=== PATIENT | male | born 1980 | race Caucasian/White ===

== ENCOUNTER 2017-04-10 15:13 | Emergency (ER) | payer OTHER ==
[2017-04-10 15:33] VITALS: BP 128/77
--- NOTE | 2017-04-10 16:38 | UC ---
Katarina Timmons Gabriel, scribed for Lina Colón MD on 04/10/17 at 1625 . Back Pain HPI - HPI Summary HPI Summary: This patient is a 37 year old M presenting to [facility] with 2 complaints. 1) pt reports right back pain that began last night while he was twisting to get daughter into car seat. . The patient rates the pain 6/10 in severity, located below his right shoulder blade, and radiating into right side. States intermittent spasms. states has had similar muscle spasms before. No cp, sob. No n/v. No fevers, chills. Pt has taken acetaminophen and motrin with mild relief. No direct trauma. Pt denies HERNANDEZ, numbness, weakness, tingling, fever, and chills. 2) Pt also reports tooth pain for 10 days and in planning to see a dentist in the Spring. Pt states has many broken teeth and has difficulty with infections in the past. Pt reports temperature sensitivity and pain with chewing. Pt states motrin/apap with mild relief. No facial edema. no fevers, chills no intraoral edema Pt's medications reviewed this visit - History of Current Complaint Chief Complaint: UCBackPain Stated Complaint: BACK & TOOTH PAIN Time Seen by Provider: 04/10/17 16:15 Hx Obtained From: Patient Onset/Duration: Still Present Timing: Constant Severity Initially: Moderate Severity Currently: Moderate Pain Intensity: 6 Pain Scale Used: 0-10 Numeric Character: Spasmodic, Stiffness Aggravating Factor(s): Movement Alleviating Factor(s): Cold, OTC Meds Associated Signs And Symptoms: Negative: Swelling, Redness, Fever, Weakness, Numbness, Tingling - Allergies/Home Medications Allergies/Adverse Reactions: Allergies Allergy/AdvReac Type Severity Reaction Status Date / Time Amoxicillin Allergy Anaphylatic Verified 04/10/17 15:24 Shock Clindamycin Allergy Anaphylatic Verified 04/10/17 15:24 Shock Penicillins [PCN] Allergy Anaphylatic Verified 04/10/17 15:24 Shock Home Medications: Home Medications Acetaminophen [Acetaminophen Extra Stren] 1,500 mg PO Q6HR PRN 04/10/17 [ History Confirmed 04/10/17] Ibuprofen [Advil] 600 mg PO Q6HR 04/10/17 [History Confirmed 04/10/17] Sertraline HCl [Zoloft] 50 mg PO DAILY 04/10/17 [History Confirmed 04/10/17] PMH/Surg Hx/FS Hx/Imm Hx Previously Healthy: Yes Psychological History: Anxiety, Depression Other History Of: Negative For: HIV, Hepatitis B, Hepatitis C - Surgical History Surgical History: Yes Surgery Procedure, Year, and Place: Appendectomy 2006 - Family History Known Family History: Negative: Respiratory Disease, Seizure Disorder - Social History Occupation: Employed Full-time Lives: With Family Alcohol Use: Rare Substance Use Type: None Smoking Status (MU): Heavy Every Day Tobacco Smoker Amount Used/How Often: 1 PPD Review of Systems Constitutional: Negative ENT: Dental Pain Musculoskeletal: Other: - back pain into the chest Neurological: Negative - numbness/ tingling All Other Systems Reviewed And Are Negative: Yes Physical Exam Triage Information Reviewed: Yes Appearance: Well-Appearing, No Pain Distress, Well-Nourished Vital Signs: Initial Vital Signs Temp 98.8 F 04/10/17 15:27 Pulse 81 04/10/17 15:27 Resp 18 04/10/17 15:27 BP 128/77 04/10/17 15:27 Pulse Ox 97 04/10/17 15:27 Vital Signs Reviewed: Yes Eye Exam: Normal Eyes: Positive: Conjunctiva Clear ENT Exam: Normal ENT: Positive: Normal ENT inspection, Hearing grossly normal, Pharynx normal, TMs normal, Dental tenderness. Negative: Nasal congestion Dental: Positive: Gross Decay/Caries @, Dental Fracture @, Other: - Pt with multiple broken teeth and caries Pt with ttp #18 - broken at gumline + TTP no fluctuance, no edema, no bleeding Neck exam: Normal Neck: Positive: Supple, Nontender, No Lymphadenopathy Respiratory Exam: Normal Respiratory: Positive: Chest non-tender, Lungs clear, Normal breath sounds, No respiratory distress, No accessory muscle use Cardiovascular Exam: Normal Cardiovascular: Positive: RRR, No Murmur Abdominal Exam: Normal Abdomen Description: Positive: Nontender, No Organomegaly, Soft Bowel Sounds: Positive: Present Musculoskeletal: Positive: Other: - no spinous process pain c/t/l/s + TTP right medial scapular region Pain with direct palp Pain increases with ROM R shoulder Pain increases with flexion neck, lateral rotation to left Neurological Exam: Normal Neurological: Positive: Other: - + thumb up, a ok, finger spread, finger cross Psychological Exam: Normal Psychological: Positive: Normal Response To Family Skin Exam: Normal Back Pain Course/Dx - Course Course Of Treatment: Pt with back pain and spasm s/p twisting and lifting yesterday. Pt with focal pain - muscle spasm. - heat, stretch, motrin/apap, muscle relaxant (precautions discussed). dental pain - pt with allergy to pcn, clind - will give Rx doxy, lidocaine. dental list given. work note. pt comfortable and in agreement with plan - Differential Dx/Diagnosis Provider Diagnoses: dental pain, apical caries. muscle spasm in back Discharge - Discharge Plan Condition: Stable Disposition: HOME Prescriptions: Cyclobenzaprine HCl [Flexeril 5 mg (NF)] 5 mg PO Q8HR PRN #10 tab PRN Reason: muscle spasm DOXYcycline CAP(*) [DOXYcycline 100MG CAP(*)] 100 mg PO BID #20 cap Lidocaine 2% VISCOUS* 10 ml PO Q6HR PRN #100 btl PRN Reason: dental pain Patient Education Materials: Muscle Spasm (ED), Toothache (ED) Forms: *Gen. Provider Communication, *Work Release Referrals: [facility] [Outside] No Primary Care Phys,NOPCP [Primary Care Provider] - Additional Instructions: - for your back - apply heat to your sore muscle Once warm, slow gentle stretching exercises - Okay to alternate ibuprofen (Advil, Motrin) and tylenol every 3 hours for pain , Take with food - Take muscle relaxer as prescribed - this may cause drowsiness - do not drive, operate machinery or drink alcohol while taking this medication - for your tooth - take antibiotics as prescribed - Okay to apply numbing agent to your tooth every 6 hours as instructed - y ou have been given a list of dentists - it is recommended you call to schedule a follow-up appointment - you have been given the contact information for the physician referral center which will assist with finding a new primary care provider The documentation as recorded by the Katarina fields Gabriel accurately reflects the service I personally performed and the decisions made by , Lina Colón MD.
== END 2017-04-10 16:51 | disposition home or self-care (01) ==
LOC: UCEAST 15:13
DX: M62.830 Muscle spasm of back (principal); M54.6 Pain in thoracic spine; K02.9 Dental caries, unspecified; F41.9 Anxiety disorder, unspecified; F32.9 Major depressive disorder, single episode, unspecified; Z90.89 Acquired absence of other organs; Z88.1 Allergy status to other antibiotic agents; Z88.0 Allergy status to penicillin; F17.210 Nicotine dependence, cigarettes, uncomplicated
CPT/HCPCS: 99202; G0463

== ENCOUNTER 2017-04-11 17:05 | Emergency (ER) | payer OTHER ==
[2017-04-11 17:13] VITALS: BP 137/84
--- NOTE | 2017-04-11 17:59 | UC ---
UC Dental HPI - HPI Summary HPI Summary: PT STARTED DOXY YESTERDAY FOR LEFT LOWER TOOTH INFECTION. TOOK FIRST DOSE LAST NIGHT AND SECOND DOSE THIS MORNING. THIS AFTERNOON DEVELOPED GLOBUS SENSATION LEFT SIDE. PT HAS SOME SWELLING DUE TO HIS INFECTION ON THE LEFT SIDE. NO RESPIRATORY DISTRESS, NO TONGUE/LIP SWELLING, NO RASHES, NO NAUSEA, NO INCREASED SECRETIONS. - History of Current Complaint Chief Complaint: UCAllergicReaction Stated Complaint: possible allergic reaction Time Seen by Provider: 04/11/17 17:43 Hx Obtained From: Patient Onset/Duration: Gradual Onset, Lasting Days, Still Present Severity: Moderate Pain Intensity: 6 Pain Scale Used: 0-10 Numeric Aggravating Factor(s): Heat, Cold, Chewing - Allergies/Home Medications Allergies/Adverse Reactions: Allergies Allergy/AdvReac Type Severity Reaction Status Date / Time Amoxicillin Allergy Anaphylatic Verified 04/11/17 17:12 Shock Clindamycin Allergy Anaphylatic Verified 04/11/17 17:12 Shock Penicillins [PCN] Allergy Anaphylatic Verified 04/11/17 17:12 Shock PMH/Surg Hx/FS Hx/Imm Hx Previously Healthy: Yes Other History Of: Negative For: HIV, Hepatitis B, Hepatitis C - Surgical History Surgical History: Yes Surgery Procedure, Year, and Place: Appendectomy 2006 - Family History Known Family History: Negative: Hypertension, Respiratory Disease, Seizure Disorder - Social History Alcohol Use: Rare Substance Use Type: None Smoking Status (MU): Heavy Every Day Tobacco Smoker Amount Used/How Often: 1 PPD Review of Systems Constitutional: Negative Skin: Negative ENT: Dental Pain - LEFT JAW SWELLING AND GLOBUS SENSATION Respiratory: Negative Cardiovascular: Negative Gastrointestinal: Negative All Other Systems Reviewed And Are Negative: Yes Physical Exam Triage Information Reviewed: Yes Appearance: Well-Appearing, No Pain Distress, Well-Nourished Vital Signs: Initial Vital Signs Temp 99.0 F 04/11/17 17:07 Pulse 98 04/11/17 17:07 Resp 15 04/11/17 17:07 BP 137/84 04/11/17 17:07 Pulse Ox 100 04/11/17 17:07 Vital Signs Reviewed: Yes Eyes: Positive: Conjunctiva Clear ENT: Positive: Pharynx normal Neck: Positive: Supple, No Lymphadenopathy, Tenderness @ - LEFT JAW Respiratory: Positive: No respiratory distress, No accessory muscle use Cardiovascular: Positive: Pulses Normal Abdomen Description: Positive: Soft Musculoskeletal: Positive: No Edema Neurological: Positive: Alert Psychological: Positive: Age Appropriate Behavior Skin: Negative: rashes Dental Complaint Course/Dx - Course Course Of Treatment: SX DO NOT SEEM TO BE DUE TO ALLERGIC REACTION. LIKELY DUE TO ACUTE INFECTION. PT NEEDS TO F/U WITH DENTIST ALISIA. CONTINUE DOXY PRESCRIBED. TO ER WITHOUT FAIL IF SX WORSEN. - Differential Dx/Diagnosis Provider Diagnoses: ODONTOGENIC PAIN AND SWELLING Discharge - Discharge Plan Condition: Stable Disposition: HOME Prescriptions: Chlorhexidine MW 0.12% 473ML* [Peridex Mouth Wash 0.12%*] 15 ml SWISH SPIT BID # 1 bottle Patient Education Materials: Toothache (ED) Referrals: No Primary Care Phys,NOPCP [Primary Care Provider] - Additional Instructions: YOUR SYMPTOMS SEEM TO BE STEMMING FROM THE PAIN AND SWELLING FROM YOUR DENTAL INFECTION. YOU DO NOT APPEAR TO BE HAVING AN ALLERGIC REACTION. CONTINUE THE DOXY AND CALL A DENTIST ALISIA FOR EVALUATION. YOU WILL LIKELY NEED EXTENSIVE DENTAL WORK. YOU CAN DEVELOP ALLERGY AT ANY TIME. GO TO THE ER WITHOUT FAIL IF YOU DEVELOP SHORTNESS OF BREATH, DIFFICULTY BREATHING, TONGUE/LIP SWELLING, RASH OR ANY OTHER CONCERNING SYMPTOMS. CALL THE NUMBER BELOW FOR ASSISTANCE IN ESTABLISHING WITH A PCP An additional resource available to assist in finding the appropriate physician for your health care needs is the [facility] ([facility]). You may contact them by calling [phone].
== END 2017-04-11 18:11 | disposition home or self-care (01) ==
LOC: UCEAST 17:05
DX: K08.89 Other specified disorders of teeth and supporting structures (principal); K04.7 Periapical abscess without sinus; Z90.89 Acquired absence of other organs; Z88.1 Allergy status to other antibiotic agents; Z88.0 Allergy status to penicillin; F17.210 Nicotine dependence, cigarettes, uncomplicated
CPT/HCPCS: 99212; G0463